=== PATIENT | female | born 1940 | race Caucasian/White ===

== ENCOUNTER 2016-11-04 02:59 | Emergency (ER) | payer OTHER, MEDICARE ==
[~2016-11-04] VITALS: Ht 154.9 cm; Wt 79.4 kg
[~2016-11-04 02:59] MED LIST: ACIPHEX20 M1 PO; ALBUTEROL1.25 MG/1 INH/SOL; AMBIEN10 M1 PO; AMLODIPINE BESY1 C17 PO; AMLODIPINE-BEN1 EAC2 PO; ATORVASTATIN CA10 M1 PO; AUGMENTIN 875-1 EACH PO; AUGMENTIN 875875 MG PO; B COMPLETE1 EACH PO; BIOTIN1 M1 PO; CALCIUM MAGNES1 EACH; CENTRUM COMPLE1 EACH PO; CIPRO 500MG TA500 MG PO; CITRUCEL500 M1 PO; CO Q-10100 MG PO; COREG 25 MG TAB25 MG PO; CRANBERRY450 M1 PO; DIFLUCAN150 M1 PO; ESCITALOPRAM OX20 MG PO; FIORINAL 50-321 EACH PO; FLAG500 PO; FLAGYL 25O MG250 M1 PO; FLUTICASON0.05 MG/A2 NASB; FUROSEMIDE20 M1 PO; GABAPENTIN100 M2; HAIR, SKIN & N1 EACH PO; IMODIUM2 MG PO; K-TAB ER20 MEQ PO; LEVBID0.375 M1 PO; LEVOFLOXACIN500 M1 PO; LEVOTHYROXIN0.088 M1 PO; LEVOTHYROXINE100 MC1 PO; LOTREL 5 MG-201 CAP PO; LYRICA100 M1 PO; LYRICA50 MG PO; MORPHINE SULFAT15 M4 PO; MOVE FREE JOIN1 EACH PO; OMEPRAZOLE20 M2 PO; OSTEO BI-FLEX1 EACH PO; POTASSIUM GLU2.5 MEQ PO; PREDNISONE10 M2 PO; PREDNISONE5 M1 PO; PRILOSEC 20MG C20 MG PO; TRAMADOL HCL50 M1 PO; VENLAFAXINE HY150 MG PO; VENLAFAXINE225 MG PO; VENTOLIN HFA18 GM INH; VITAMIN C1000 M2 PO; VITAMIN E400 UNI5 PO; ZOFRAN ODT4 M1 SL; ZOFRAN ODT4 MG PO; ZOLPIDEM TARTRAT5 MG PO
--- NOTE | 2016-11-04 03:12 | ED GI/GU/ABDOMINAL COMPLAINT ---
History of Present Illness General Chief Complaint: Abdominal Pain/Flank Pain Stated Complaint: ABD PAIN DENIES N/V Source: patient Exam Limitations: no limitations Vital Signs & Intake/Output Vital Signs & Intake/Output Vital Signs Date Time Temp Pulse Resp B/P B/P Pulse O2 O2 Flow FiO2 Mean Ox Delivery Rate 11/04 0321 97.5 89 18 182/93 94 Room Air Allergies Coded Allergies: gabapentin (Intermediate, FEET SWELLING 05/13/16) Gadolinium-Containing Contrast Medi (THOAT IRRITATION 01/11/16) Iodinated Contrast Media - Oral and (IODINATED CONTRAST MEDIA - IV DYE) (THROAT IRRITATION 01/11/16) Reconcile Medications Albuterol Sulfate (Ventolin Hfa) 18 GM HFA.AER.AD 2 PUF INH Q4-6 PRN PRN wheeze, cough Albuterol Sulfate 1.25 MG/3 ML VIAL.NEB 1 Vial INH/JUAN Q4-6 PRN WHEEZE Amlodipine Besylate/Benazepril (Amlodipine-Benazepril 5-20 MG) 1 EACH CAPSULE 1 CAP PO BID BP (Reported) Ascorbic Acid (Vitamin C) 1,000 MG TAB.CHEW 1 TAB PO DAILY SUPPLEMENT ( Reported) Atorvastatin Calcium 10 MG TABLET 1 TAB PO DAILY CHOLESTEROL (Reported) Biotin 1 MG TABLET 1 TAB PO DAILY SUPPLEMENT (Reported) Ca Carb & Gluc/Mag Ox & Gluc (Calcium Magnesium Caplet) (Unknown Strength) TABLET (Unknown Dose) SUPPLEMENT (Reported) Carvedilol (Coreg) 25 MG TABLET 1 TAB PO BID HEART (Reported) Ciprofloxacin HCl (Cipro) 500 MG TABLET 1 TAB PO BID diverticulitis Cranberry Fruit Concentrate (Cranberry) 450 MG TABLET 1 TAB PO DAILY SUPPLEMENT (Reported) Escitalopram Oxalate 20 MG TABLET 1 TAB PO DAILY MENTAL HEALTH (Reported) Fiorinal (Fiorinal 50-325-40 MG Capsule) 1 EACH CAPSULE 1 CAP PO PRN MIGRAINES (Reported) Fluconazole (Diflucan) 150 MG TABLET 1 TAB PO PRN WHEN ON ANTIBIOTICS ( Reported) Furosemide 20 MG TABLET 1 TAB PO DAILY DIURETIC (Reported) Gabapentin (Unknown Strength) CAPSULE (Unknown Dose) UNKNOWN (Reported) Glucosam/Chond/Hyalu/Cf Borate (Move Free Joint Health Tablet) 750 MG-100 MG- 1.65 MG-108 MG TABLET 1 TAB PO DAILY SUPPLEMENT (Reported) Glucosamine HCl/Chondr Qu[place]ñones A Na (Osteo Bi-Flex Caplet) (Unknown Strength) TABLET (Unknown Dose) PO DAILY SUPPLEMENT (Reported) Hyoscyamine Sulfate (Levbid) 0.375 MG TAB.ER.12H 1 TAB PO BID ABD CRAMPS ( Reported) Levothyroxine Sodium 100 MCG TABLET 1 TAB PO DAILY AC THYROID (Reported) Methylcellulose (Citrucel) 500 MG TABLET 1 TAB PO DAILY SUOPPLEMENT (Reported ) Metronidazole (Flagyl) 500 MG TABLET 1 TAB PO 4 TIMES/DAY diverticulitis Morphine Sulfate 15 MG TABLET 1 TAB PO Q8-12 PRN pain may cause drowsiness. Do not take if becoming drowsy or confused Multivitamin With Minerals (Hair, Skin & Nails) 1 EACH TABLET 1 TAB PO DAILY SUPPLEMENT (Reported) Multivitamin/Iron/Folic Acid (Centrum Complete Multivit Tab) 18 MG IRON-400 MCG TABLET 1 TAB PO DAILY SUPPLEMENT (Reported) Omeprazole 20 MG CAPSULE.DR 1 CAP PO DAILY GI (Reported) Potassium Chloride (K-Tab ER) 20 MEQ TABLET.ER 1 TAB PO DAILY POTASSIUM Potassium Gluconate (Unknown Strength) TABLET (Unknown Dose) PO DAILY SUPPLEMENT (Reported) Prednisone 5 MG TABLET 1 TAB PO BID PMR Pregabalin (Lyrica) 100 MG CAPSULE 1 CAP PO TID POLYMYALGIA RHEUMATICA ( Reported) Rabeprazole Sodium (Aciphex) 20 MG TABLET.DR 1 TAB PO DAILY GI (Reported) Tramadol HCl 50 MG TABLET 1 TAB PO DAILY PAIN (Reported) Ubidecarenone (Co Q-10) 100 MG CAPSULE 1 CAP PO DAILY SUPPLEMENT (Reported) Vitamin B Complex (B Complete) 1 EACH TABLET 1 TAB PO DAILY SUPPLEMENT ( Reported) Vitamin E 400 UNIT CAPSULE 1 CAP PO DAILY SUPPLEMENT (Reported) Zolpidem Tartrate (Ambien) 10 MG TABLET 1 TAB PO PRN SLEEP (Reported) Triage Nurses Notes Reviewed? yes ? N Is pt currently ? No Onset: Gradual Duration: day(s):, waxing and waning Quality/Severity: cramping, sharpness Location: left lower quadrant Radiation: no radiation Modifying Factors: Worsens With: palpation, urinating. Associated Symptoms: abdominal pain HPI: 76 yo woman h/o diverticulitis presents with left lower quadrant tenderness, dysuria for the past 7 days, intermittent. She notes that her last bowel movement was 3-4 days ago, of normal consistency. She notes, "My bowel movements and are all over the place... sometimes hard, sometimes soft." She is otherwise well. She has no vomiting, chest pain, diaphoresis, fever, chills. Past History Medical History Any Pertinent Medical History? see below for history Neurological: NONE EENT: NONE Cardiovascular: hypertension, hyperlipidemia Respiratory: NONE Gastrointestinal: irritable bowel syndrome Hepatic: NONE Renal: NONE Musculoskeletal: fibromyalgia, PMR POLYMYALGIA RHEUMATICA Psychiatric: depression, insomnia Endocrine: hypothyroidism, THYROID DISORDER Blood Disorders: NONE Cancer(s): NONE JOURNEYMAN PRESSMAN/Reproductive: NONE History of MRSA: No History of VRE: No History of CDIFF: No Surgical History Surgical History: non-contributory Psychosocial History Who do you live with Spouse Services at Home None What is your primary language Ghanaian Family History Family History, If Any: FATHER Relation not specified for: FH: HTN (hypertension) Hx Contributory? No Review of Systems Review of Systems Constitutional: Reports: no symptoms. EENTM: Reports: no symptoms. Respiratory: Reports: no symptoms. Cardiovascular: Reports: no symptoms. GI: Reports: no symptoms. Genitourinary: Reports: no symptoms. Musculoskeletal: Reports: no symptoms. Skin: Reports: no symptoms. Neurological/Psychological: Reports: no symptoms. Hematologic/Endocrine: Reports: no symptoms. Immunologic/Allergic: Reports: no symptoms. All Other Systems: Reviewed and Negative Physical Exam Physical Exam General Appearance: well developed/nourished, mild distress Head: atraumatic, normal appearance Eyes: Bilateral: normal appearance. Ears, Nose, Throat, Mouth: hearing grossly normal Neck: normal inspection, supple, full range of motion, normal alignment Respiratory: normal breath sounds, chest non-tender, no respiratory distress, quiet respiration, lungs clear Cardiovascular: regular rate/rhythm Gastrointestinal: normal bowel sounds, soft, mild distension, left lower quadrant tenderness, without rebound or guarding. Back: normal inspection Extremities: normal range of motion Neurologic/Psych: no motor/sensory deficits, awake, alert, oriented x 3 Skin: intact, normal color, warm/dry Core Measures ACS in differential dx? No Severe Sepsis Present: No Septic Shock Present: No Progress Differential Diagnosis: appendicitis, cholecystitis, diverticulitis, gastritis, hepatitis Plan of Care: Orders Procedure Date/time Status TROPONIN LEVEL 11/04 0302 Complete LIPASE 11/04 0302 Complete HEPATIC FUNCTION PANEL 06/03 0302 Complete CBC WITHOUT DIFFERENTIAL 11/04 301 Complete BASIC METABOLIC PANEL 11/04 301 Complete AMYLASE 11/04 301 Complete EKG 11/04 301 Active Laboratory Tests 11/04/16 0404: Anion Gap 8, Estimated GFR > 60, BUN/Creatinine Ratio 17.1, Glucose 131 H, Calcium 8.8, Total Bilirubin 0.3, Direct Bilirubin 0.2, AST 28, ALT 49, Alkaline Phosphatase 84, Troponin I < 0.01, Total Protein 5.5 L, Albumin 3.4 L, Amylase 39, Lipase 37, CBC w Diff NO MAN DIFF REQ, RBC 3.63 L, MCV 94.5, MCH 31.8 H, RDW 13.3, MPV 7.0 L, Gran % 52.1, Lymphocytes % 32.3, Monocytes % 10.7 H, Eosinophils % 4.2, Basophils % 0.7, Absolute Granulocytes 4.8, Absolute Lymphocytes 3.0, Absolute Monocytes 1.0 H, Absolute Eosinophils 0.4, Absolute Basophils 0.1, PUBS MCHC 33.7 11/04/16 0356: Urine Color Cancelled, Urine Clarity Cancelled, Urine pH Cancelled, Ur Specific [place] Cancelled, Urine Protein Cancelled, Urine Ketones Cancelled, Urine Nitrite Cancelled, Urine Bilirubin Cancelled, Urine Urobilinogen Cancelled, Ur Leukocyte Esterase Cancelled, Ur Microscopic Cancelled, Urine Hemoglobin Cancelled, Urine Glucose Cancelled Diagnostic Imaging: Viewed by Me: CT Scan. Discussed w/RAD: CT Scan. Initial ED EKG: normal axis, normal intervals, normal p-waves, normal QRS complex, normal sinus rhythm Departure Departure Disposition: HOME OR SELF CARE Condition: Stable Clinical Impression Primary Impression: Diverticulitis Referrals: FOUZIA HSU MD (PCP/Family) Departure Forms: Customer Survey General Discharge Information Prescriptions: Current Visit Scripts Ciprofloxacin HCl (Cipro) 1 TAB PO BID #20 TAB Metronidazole (Flagyl) 1 TAB PO 4 TIMES/DAY #40 TAB Comments 11/04/16, 5:21am... pt comfortable in ED.... ct scan reveals sigmoid diverticulitis. Afebrile, normal wbc count... pt safe for discharge with close follow up encouraged. She has an appointment with her transport rn in 3 days. Pt to return to ED if her symptoms worsen. Pt to take 10 days of cipro/ flagyl.
[2016-11-04 04:12] LABS: ABSOLUTE BASOPHIL COUNT 0.1 /CUMM (0.0-0.2); ABSOLUTE EOSINOPHIL COUNT 0.4 /CUMM (0.0-0.7); ABSOLUTE GRANULOCYTE CT 4.8 /CUMM (1.4-6.5); BASOPHIL % 0.7 % (0.0-2.0); EOSINOPHIL % 4.2 % (0-5); GRANULOCYTE % 52.1 % (42.2-75.2); HEMATOCRIT 34.3 % (37-47); MEAN CORPUSCULAR HGB 31.8 PG (27.0-31.0); MEAN CORPUSCULAR HGB CONC 33.7 G/DL (33.0-37.0); MEAN CORPUSCULAR VOLUME 94.5 FL (81.0-99.0); PLATELET COUNT 388 /CUMM (130-400); RBC DISTRIBUTION WIDTH 13.3 % (11.5-14.5); RED BLOOD CELL CT 3.63 /CUMM (4.20-5.40); WHITE BLOOD CELL COUNT 9.2 /CUMM (4.8-10.8)
--- NOTE | 2016-11-04 04:29 | CT SCAN REPORT ---
EXAMINATION: CT ABDOMEN AND PELVIS WITHOUT CONTRAST CLINICAL INFORMATION: Left lower quadrant tenderness. History of diverticulitis. COMPARISON: 05/08/2015 TECHNIQUE: Multidetector volumetric imaging was performed from the superior aspect of the liver through the pubic symphysis. Sagittal and coronal reformatted images were obtained on the technologist's workstation. DLP: 505 mGy-cm FINDINGS: LUNG BASES: Bibasilar subsegmental atelectasis. The visualized cardiac structures are unremarkable. LIVER, GALLBLADDER, AND BILIARY TREE: The liver is normal in size, shape, and attenuation. No focal hepatic lesion or biliary ductal dilatation is present. The gallbladder is unremarkable with no evidence of radiopaque gallstones, gallbladder wall thickening, or obvious pericholecystic inflammatory changes. PANCREAS: Unremarkable. SPLEEN: Unremarkable. ADRENAL GLANDS: Unremarkable. KIDNEYS AND URETERS: The kidneys are normal in size, shape, and attenuation. No hydronephrosis, hydroureter, or calculi seen. No perinephric stranding. BLADDER: Unremarkable. GASTROINTESTINAL TRACT: The stomach and small bowel are unremarkable. No dilated loops of bowel or evidence of obstruction. There is colonic diverticulosis. There is focal wall thickening with inflammation involving the sigmoid colon. No free air or fluid collection. ABDOMINAL WALL: No significant hernia is appreciated. LYMPH NODES: Normal. VASCULAR: Scattered atherosclerotic calcifications. PELVIC VISCERA: The uterus is not seen. No adnexal mass. OSSEOUS STRUCTURES: No acute or suspicious osseous abnormality. Mild degenerative changes of the spine. IMPRESSION: Sigmoid diverticulitis. No free air or fluid collection.
[2016-11-04] MEDS ORDERED: CIPRO500 M1 PO ×2 (05:21→05:28)
[2016-11-04] MEDS ORDERED: FLAGYL500 MG PO ×2 (05:21→05:28)
[2016-11-04] MEDS ORDERED: DIFLUCAN150 M1 PO ×2 (05:26→05:28)
[2016-11-04 05:33] VITALS: BP 164/79
== END 2016-11-04 05:33 ==
LOC: ERH 02:59
PROVIDERS: Pediatrics
DX: K57.92 Diverticulitis of intestine, part unspecified, without perforation or abscess without bleeding (principal)
CPT/HCPCS: 74176; 93005; 93010